=== PATIENT | male | born 1970 | race Caucasian/White ===

== ENCOUNTER 2021-09-18 11:43 | Inpatient (IN) | payer OTHER ==
[~2021-09-18] VITALS: Ht 185.4 cm; Wt 117.9 kg
[2021-09-18 12:34] LABS: HEMOGLOBIN 11.8 gm/dl (14.0-17.5); RED BLOOD COUNT 3.35 M/UL (4.20-5.50); WHITE BLOOD COUNT 6.5 K/UL (4.5-11.0)
[2021-09-18 12:55] LABS: BUN/CREATININE RATIO 21 (0-10)
[2021-09-19 08:59] LABS: HEMOGLOBIN 11.4 gm/dl (14.0-17.5); RED BLOOD COUNT 3.26 M/UL (4.20-5.50); WHITE BLOOD COUNT 5.6 K/UL (4.5-11.0)
[2021-09-19 09:17] LABS: BUN/CREATININE RATIO 23 (0-10)
--- NOTE | 2021-09-19 10:01 | NUR ---
PT WANTED TO LEAVE AMA AFTER BEING EDUCATED ON RISKS. MD MADE AWARE. PT DAUGHTER AT BEDSIDE. PT ABLE TO ANSWER ALL QUESTIONS APPROPRIATELY. TWO RN'S AT BEDSIDE TO VERIFY PT ORIENTATION BEFORE DISCHARGE. IV'S REMOVED PT DAUGHTER WALKED PT OUT.
--- NOTE | 2021-09-19 11:35 | NUR ---
0804 PT RANG OUT STATING THAT HE WANTED TO LEAVE THE HOSPITAL. HE WAS INFORMED THAT HE WAS CURRENTLY AWAITING GI CONSULT HERE WELL WAITING FOR A BED AT . PT STATED THAT HE DID NOT WANT EITHER OF THOSE. HE SAID THAT HE HAD OUTPATIENT FOLLOW UP APPOINTMENTS IN [place] THAT WERE ALREADY SCHEDULED. I INFORMED HIM OF HIS ELEVATED AMMONIA AND LACTIC ACID VALUES. I INFORMED HIM OF THE RISKS OF HIS CONDITION. HIS DAUGHTER WAS AT BEDSIDE AND WAS INVOLVED IN THE CONVERSATION. SHE STATED THAT HE LIVED WITH HER AND THAT SHE WOULD TRANSPORT HIM HOME. PT INFORMED ME THAT HE HAS A SIGNIFICANT OTHER THAT USED TO BE A NURSE THAT HELPED TAKE CARE OF HIM AND WOULD BE ABLE TO MONITOR HIM AT HOME. PT WAS TOLD TO COME BACK TO THE ER IF CONDITION WORSENS, SOB, AMS, OR ABDOMINAL PAIN. PT ANSWERS ALL QUESTIONS ABOUT PERSON PLACE AND TIME APPROPRIATELY. ANOTHER RN WAS PRESENT AT BEDSIDE DURING THIS TIME WELL.
== END 2021-09-19 09:10 | disposition left against medical advice (07) | DRG 432 ==
LOC: ER1 11:43 → CDU 16:57 → PROG CARE 19:14
PROVIDERS: Family Medicine; Physician Assistant; ADMIT Internal Medicine
DX: K74.60 Unspecified cirrhosis of liver (principal); K72.00 Acute and subacute hepatic failure without coma; Z20.822 Contact with and (suspected) exposure to COVID-19; J90 Pleural effusion, not elsewhere classified; E87.2 Acidosis; J98.11 Atelectasis; D68.9 Coagulation defect, unspecified; R18.8 Other ascites; D69.6 Thrombocytopenia, unspecified; D53.9 Nutritional anemia, unspecified; J45.909 Unspecified asthma, uncomplicated; I10 Essential (primary) hypertension; E66.01 Morbid (severe) obesity due to excess calories; R11.2 Nausea with vomiting, unspecified; F17.220 Nicotine dependence, chewing tobacco, uncomplicated; M79.81 Nontraumatic hematoma of soft tissue; Z86.711 Personal history of pulmonary embolism; Z79.01 Long term (current) use of anticoagulants; Z91.81 History of falling
CPT/HCPCS: 36415; 70450; 71250; 80053; 80307; 82140; 82270; 83605; 83735; 85025; 85610; 96374; 96375; 96376; 99285; C9113; G0480; J2354; J2405; J3486; J7030; U0002

== ENCOUNTER 2021-09-24 22:14 | Inpatient (IN) | payer OTHER ==
[~2021-09-24] VITALS: Ht 185.4 cm; Wt 117.9 kg
[~2021-09-24 22:14] MED LIST: CHRONULAC20 GM/30 M PO; ENOXAPARIN120 MG/0.8 SQ; FUROSEMIDE40 MG PO; LISINOPRIL40 MG PO; PROAIR HFA8.5 GM INH; PROTONIX40 MG PO; SPIRONOLACTONE50 MG PO; XIFAXAN 550 MG550 MG PO
[2021-09-25 03:03] LABS: HEMOGLOBIN 8.8 gm/dl (14.0-17.5); RED BLOOD COUNT 2.51 M/UL (4.20-5.50)
[2021-09-25 03:07] LABS: WHITE BLOOD COUNT 10.7 K/UL (4.5-11.0)
[2021-09-25 03:22] LABS: BUN/CREATININE RATIO 24 (0-10)
[2021-09-26 06:39] LABS: HEMOGLOBIN 7.2 gm/dl (14.0-17.5)
[2021-09-26] MEDS ORDERED: MAGNESIUM250 M1 PO (17:20)
[2021-09-26 18:45] LABS: HEMOGLOBIN 8.1 gm/dl (14.0-17.5)
[2021-09-27 06:43] LABS: HEMOGLOBIN 7.4 gm/dl (14.0-17.5); RED BLOOD COUNT 2.07 M/UL (4.20-5.50); WHITE BLOOD COUNT 8.5 K/UL (4.5-11.0)
--- NOTE | 2021-09-27 14:31 | NUR ---
1431- PT LEAVING AMA. NOTIFIED DR. GREEN
[2021-09-28 15:11] LABS: APTT 1:1 NORMAL PLASMA 26.1 sec (22.9-30.2)
== END 2021-09-27 14:53 | disposition left against medical advice (07) | DRG 555 ==
LOC: ER1 22:14 → CDU 09-25 04:37 → M/S 09-25 09:38
PROVIDERS: Internal Medicine; Physician Assistant Medical; ADMIT Internal Medicine
PROC: 30233N1 Transfusion of Nonautologous Red Blood Cells into Peripheral Vein, Percutaneous Approach (ICD-10-PCS; principal; 2021-09-26)
DX: M79.81 Nontraumatic hematoma of soft tissue (principal); I81 Portal vein thrombosis; D62 Acute posthemorrhagic anemia; D68.8 Other specified coagulation defects; N17.9 Acute kidney failure, unspecified; Z20.822 Contact with and (suspected) exposure to COVID-19; F17.210 Nicotine dependence, cigarettes, uncomplicated; K72.10 Chronic hepatic failure without coma; K75.81 Nonalcoholic steatohepatitis (NASH); D69.6 Thrombocytopenia, unspecified; I10 Essential (primary) hypertension; K74.60 Unspecified cirrhosis of liver; Z79.01 Long term (current) use of anticoagulants; Z86.711 Personal history of pulmonary embolism; Z82.49 Family history of ischemic heart disease and other diseases of the circulatory system; Z83.79 Family history of other diseases of the digestive system; Z80.42 Family history of malignant neoplasm of prostate
CPT/HCPCS: 36415; 73700; 73701; 80053; 82140; 82248; 82565; 83735; 85014; 85018; 85025; 85027; 85384; 85610; 85730; 85732; 86850; 86870; 86900; 86901; 86920; 86922; 94760; 96374; C9113; G0378; J2405; P9016; P9047; Q9967